=== PATIENT | male | born 2000 | race Caucasian/White ===

== ENCOUNTER 2020-05-05 12:03 | Emergency (ER) | payer OTHER, SELFPAY ==
[2020-05-05 12:16] VITALS: BP 118/69; PULSE 69; RESP 20; TEMP 36.6; O2SAT 97
--- NOTE | 2020-05-05 12:57 | ED.GENADULT ---
HPI - General Adult General Chief complaint: Extremity Injury, Lower Stated complaint: 3rd digit toe right foot Time Seen by Provider: 05/05/20 12:47 Source: patient and RN notes reviewed Mode of arrival: ambulatory Limitations: no limitations History of Present Illness HPI narrative: Patient presents today complaining of pain to his right third toe with redness and swelling that began yesterday. Denies injury or trauma. Denies numbness or tingling to the toe. States pain waxes and wanes. He has been taking ibuprofen with mild relief and currently rates pain 4/10. States he has difficulty walking at work as he has to wear steel toed tennis shoes. States he walks 14 miles each shift at [employer]. MD complaint: Toe pain and swelling Related Data Home Medications Medication Instructions Recorded Confirmed albuterol sulfate 2 puff INHALATION QID 05/05/20 05/05/20 loratadine [Claritin] 10 mg PO DAILY 05/05/20 05/05/20 Allergies Allergy/AdvReac Type Severity Reaction Status Date / Time No Known Allergies Allergy Verified 05/05/20 12:41 Review of Systems Review of Systems: Narrative: CONSTITUTIONAL: Denies body aches, fever, chills, or sweats. EYES: Denies visual changes, redness, or discharge. ENT: Denies rhinorrhea, congestion, sore throat, or otalgia. CARDIOVASCULAR: Denies chest pain, palpitations, or edema. RESPIRATORY: Denies cough or dyspnea. GASTROINTESTINAL: Denies abdominal pain, nausea, vomiting, or diarrhea. GENITOURINARY: Denies dysuria or hematuria. SKIN: Denies rash, itching, or wounds. Right third toe redness and pain MUSCULOSKELETAL: Denies back pain, joint pain, or myalgia. NEUROLOGIC: Denies headache, numbness, tingling, or weakness. PSYCH: Denies depression or anxiety. PMFSH Comments At time of signature, I have reviewed and agree with nursing past medical, surgical, social and family history unless otherwise noted. Please see nursing chart for further information. There is no relevant family history pertinent to the presenting complaint Exam Narrative: Exam Narrative: GENERAL: Well-appearing, well-nourished, and in no acute distress. HEAD: Normocephalic, atraumatic. EYES: EOMI. No redness or drainage. Conjunctivae normal. ENT: Mucous membranes pink and moist. NECK: Normal AROM. Supple. No lymphadenopathy. CHEST: No respiratory distress. EXTREMITIES: Right 3rd toe: Distal phalanx is erythematous with mild edema. Tenderness to medial portion of the toe only. Distal sensation intact. Capillary refill normal. Full active range of motion of the toe. Nail normal. No rash, wound, ingrown nail, drainage. SKIN: Warm, dry, no rash. Capillary refill normal. Normal skin turgor. NEURO: No focal deficits. Alert and oriented x3. Gait steady. PSYCH: Normal affect. No signs of depression or anxiety. Course Vital Signs Vital signs: Vital Signs Temperature 97.9 F 05/05/20 12:16 Pulse Rate 69 05/05/20 12:16 Respiratory Rate 20 05/05/20 12:16 Blood Pressure 118/69 05/05/20 12:16 Pulse Oximetry 97 05/05/20 12:16 Temperature 97.9 F 05/05/20 12:16 Pulse Rate 69 05/05/20 12:16 Respiratory Rate 05/05/20 12:16 Blood Pressure 118/69 05/05/20 12:16 Pulse Oximetry 97 05/05/20 12:16 Reviewed Medical Decision Making Differential Diagnosis Differential Diagnosis: cellulitis, gout, abscess, eczema, ingrown toenail Vital Signs Vital Signs: Vital Signs Temperature 97.9 F 05/05/20 12:16 Pulse Rate 69 05/05/20 12:16 Respiratory Rate 05/05/20 12:16 Blood Pressure 118/69 05/05/20 12:16 Pulse Oximetry 97 05/05/20 12:16 Temperature 97.9 F 05/05/20 12:16 Pulse Rate 69 05/05/20 12:16 Respiratory Rate 05/05/20 12:16 Blood Pressure 118/69 05/05/20 12:16 Pulse Oximetry 97 05/05/20 12:16 Critical Care Time Critical Care Time Critical Care Time: No Discharge Plan Discharge Clinical Impression: Cellulitis of toe of [facility]
== END 2020-05-05 13:03 | disposition home or self-care (01) ==
PROVIDERS: Emergency Provider Nurse Practitioner; PCP Internal Medicine
DX: L03.031 Cellulitis of right toe (principal); J45.909 Unspecified asthma, uncomplicated
CPT/HCPCS: 99213; G0463